=== PATIENT | male | born 1940 | race Caucasian/White ===

== ENCOUNTER 2018-03-25 06:30 | Day surgery (SDC) | payer MEDICARE, OTHER ==
[2018-03-23 15:41] VITALS: BMI 39.8
[~2018-03-25 06:30] MED LIST: LACTATED RINGERS 1,000 ML IV SCH; LIDOCAINE 1% 20 ML VIAL (10MG/ML) FOR IV START INTRADERMA PRN; MIDAZOLAM 2 MG/2 ML VIAL IV PRN
[2018-03-25 07:44] VITALS: RESP 18; TEMP 98
[2018-03-25 07:49] LABS: Glucose,Whole Blood 113 mg/dL (75-99)
[2018-03-25] MEDS ORDERED: LIDOCAINE 1% INJ 10MG/ML (20 ML MDV) ONE (08:04)
[2018-03-25] MEDS ORDERED: PROPOFOL 10 MG/ML 20 ML VIAL IV ONE (08:04)
--- NOTE | 2018-03-25 08:31 | P.PCN ---
Date of Procedure: 03/25/18 Procedure(s) Performed: BRIEF HISTORY: Patient is a 77-year-old pleasant male, scheduled for an elective colonoscopy as a part of evaluation of positive cologard stool testing. His last colonoscopy was 5 years ago and was noted to have colon polyps. PROCEDURE PERFORMED: Colonoscopy with snare polypectomy. PREOPERATIVE DIAGNOSIS: Positive cologard/history of colon polyps. IV sedation per Anesthesia. PROCEDURE: After informed consent was obtained, the patient, was brought into the endoscopy unit. IV sedation was administered by Anesthesia under continuous monitoring. Digital rectal examination was normal. Initially the Olympus CF- 160 flexible video colonoscope was then inserted in the rectum, gradually advanced into the cecum without any difficulty. Careful examination was performed as the scope was gradually being withdrawn. Ileocecal valve and the appendiceal orifice were visualized and appeared normal. Prep was excellent. In the cecum there were 2 polyps measuring 5 mm and 1 cm in size which were removed by cold biopsy and snare polypectomy respectively. Mucosa of the cecum , ascending colon, transverse colon, descending colon, appeared normal. In the sigmoid colon there was 1 m broad-based polyp removed by snare polypectomy. Rest of the sigmoid colon, and rectum appeared normal. Retroflexion was performed in the rectum and no lesions were seen. The patient tolerated the procedure well. IMPRESSION: 1 cm and 5 mm cecal polyp status post snare polypectomy and biopsy respectively 1 cm sigmoid colon polyp status post polypectomy RECOMMENDATIONS: Findings of this examination were discussed with the patient as well as his family. He was a bite follow with the biopsy results. If the biopsy shows a tubular adenoma, he can have a repeat colonoscopy in 3 to 5 years.
[2018-03-25 08:52] VITALS: PULSE 52
[2018-03-25 09:01] VITALS: BP 175/79
== END 2018-03-25 09:16 | disposition home or self-care (01) ==
LOC: ORWHC2ENDO 06:30
PROVIDERS: ATTEND Internal Medicine Gastroenterology
DX: K63.5 Polyp of colon (principal); Z86.010 Personal history of colon polyps; I10 Essential (primary) hypertension; E78.5 Hyperlipidemia, unspecified; E11.9 Type 2 diabetes mellitus without complications; Z79.84 Long term (current) use of oral hypoglycemic drugs; E66.01 Morbid (severe) obesity due to excess calories; Z68.39 Body mass index [BMI] 39.0-39.9, adult; Z79.899 Other long term (current) drug therapy; Z88.0 Allergy status to penicillin
CPT/HCPCS: 88305; 45380; 45385; J2001; J2704

== ENCOUNTER → 2019-08-31 | Outpatient (CLI) | payer MEDICARE, OTHER ==
[2019-08-31 10:44] LABS: Potassium 4.9 mmol/L (3.5-5.1)
[2019-08-31 10:59] LABS: HCT 45.9 % (39.0-53.0); HGB 15.4 gm/dL (13.0-17.5); MCH 30.3 pg (25.0-35.0); MCHC 33.5 g/dL (31.0-37.0); MCV 90.5 fL (80.0-100.0); Platelet Count 164 k/uL (150-450); RBC 5.07 m/uL (4.30-5.90); RDW 13.7 % (11.5-15.5); WBC 9.7 k/uL (3.8-10.6)
== END | disposition home or self-care (01) ==
LOC: LABPAT 09:40
PROVIDERS: ATTEND Internal Medicine Interventional Cardiology
DX: Z01.812 Encounter for preprocedural laboratory examination (principal); R94.39 Abnormal result of other cardiovascular function study
CPT/HCPCS: 36415; 80051; 82565; 84520; 85027

== ENCOUNTER 2019-09-08 06:05 | Day surgery (SDC) | payer MEDICARE, OTHER ==
[2019-09-03 15:50] VITALS: BMI 36.9
[2019-09-08] MEDS ORDERED: ALPRAZolam 0.25 MG TAB PO PRN (06:12)
[2019-09-08] MEDS ORDERED: ASPIRIN 325 MG TAB PO STA (06:12)
[2019-09-08] MEDS ORDERED: ALPRAZolam 0.5 MG TAB PO PRN (06:12)
[2019-09-08] MEDS ORDERED: ATORVASTATIN 80 MG TAB PO STA (06:12)
[2019-09-08] MEDS ORDERED: NITROGLYCERIN SL TABS 0.4 MG TAB SUBLINGUAL PRN (06:12)
[2019-09-08] MEDS ORDERED: SODIUM CHLORIDE 0.9% 1,000 ML in EMPTY BAG 1 BAG IV ONE (06:12)
[2019-09-08 07:04] LABS: Glucose,Whole Blood 112 mg/dL (75-99)
[2019-09-08 07:11] VITALS: RESP 16; TEMP 98.1
[2019-09-08] MEDS ORDERED: SODIUM CHLORIDE 0.9% 1,000 ML IV ONE (07:13)
[2019-09-08] MEDS: MIDAZOLAM 2 MG/2 ML VIAL IV ONE ×2 (07:30→07:38)
[2019-09-08] MEDS ORDERED: LIDOCAINE 1% INJ 10MG/ML (20 ML MDV) SQ ONE (07:33)
[2019-09-08] MEDS: VERAPAMIL SYRINGE (5 MG/10 ML) INTRAARTER ONE ×2 (07:35→07:50)
[2019-09-08] MEDS ORDERED: HEPARIN SODIUM 1,000 UN/ML (10ML VL) IV ONE (07:37)
[2019-09-08] MEDS ORDERED: IOPAMIDOL-370 100ML BTL INJ ONE (07:55)
[2019-09-08] MEDS ORDERED: SODIUM CHLORIDE 0.9% 1,000 ML IV SCH (08:00)
--- NOTE | 2019-09-08 09:37 | CC ---
CARDIAC CATHETERIZATION REPORT DATE OF SERVICE: 09/08/2019 PROCEDURE: Left heart catheterization and coronary angiography. PERFORMED BY: Dr. Abrahan Ribera. Moderate conscious sedation time was 20 minutes. CLINICAL INFORMATION: Mr. Hooks is a 79-year-old gentleman with history of hypertension, hyperlipidemia, and paroxysmal SVT. He recently had a positive stress test with inferior wall reversible defect. He was advised cardiac cath after due discussion regarding risks, benefits, and options. PROCEDURE NOTE: Under local anesthesia and strict aseptic precautions, a 6-[place] introducer was placed in the right radial artery. Using a JL3.5 and JR4 catheter, I performed selective coronary angiography. I used the same right catheter to check LV pressures but did not perform LV gram. The sheath was taken out and a TR band applied as per protocol. Patient was sent to the room in a stable condition. Findings were discussed with the patient and family. CARDIAC CATHETERIZATION FINDINGS: Left foot end-diastolic pressure was about 14-15 mmHg without any gradient across the aortic valve. CORONARY ANGIOGRAPHY FINDINGS: 1. RIGHT CORONARY ARTERY: Large dominant disease-free vessel distally bifurcates into a large PDA and PLV. No significant disease, only minor irregularities noted. 2. LEFT MAIN CORONARY ARTERY: Short, patent, disease-free vessel that bifurcates into LAD and circumflex. 3. LEFT ANTERIOR DESCENDING CORONARY ARTERY: Good caliber vessel, extends along the anterior wall, gives off septal and diagonal branches, runs all the way to the apex, has no significant disease, only minor irregularities noted. 4. LEFT POSTERIOR CIRCUMFLEX CORONARY ARTERY: Nondominant vessel, gives off a single obtuse marginal that runs laterally, has minor irregularities, no significant disease. 5. LEFT VENTRICULOGRAM: This was not performed. FINAL IMPRESSION: This patient has a right dominant system, normal filling pressures. No significant gradient across the aortic valve and no significant obstructive coronary artery disease. RECOMMENDATIONS: Findings were discussed with the patient and and daughter. Continued medical therapy with risk factor modification is advised. I expect the patient to be discharged tomorrow if he remains stable. MMODL / IJN: [id number] /
[2019-09-08 15:24] VITALS: PULSE 50
[2019-09-08 16:35] VITALS: BP 148/82
== END 2019-09-08 13:55 | disposition home or self-care (01) ==
LOC: CATHCVL 06:05
PROVIDERS: ATTEND Internal Medicine Interventional Cardiology
DX: R94.39 Abnormal result of other cardiovascular function study (principal); I10 Essential (primary) hypertension; E78.5 Hyperlipidemia, unspecified; E11.9 Type 2 diabetes mellitus without complications; I49.5 Sick sinus syndrome; E78.00 Pure hypercholesterolemia, unspecified; E66.9 Obesity, unspecified; Z68.30 Body mass index [BMI] 30.0-30.9, adult; Z79.84 Long term (current) use of oral hypoglycemic drugs; Z79.899 Other long term (current) drug therapy; Z88.0 Allergy status to penicillin
CPT/HCPCS: 93458; C1769; C1894; J2250; J2001; J1644; Q9967

== ENCOUNTER 2020-08-09 11:46 | Emergency (ER) | payer MEDICARE, OTHER ==
--- NOTE | 2020-08-09 12:32 | ED ---
General Adult HPI - General Chief complaint: Extremity Injury, Lower Stated complaint: leg injury Time Seen by Provider: 08/09/20 12:04 Source: patient, RN notes reviewed Mode of arrival: ambulatory Limitations: no limitations - History of Present Illness Initial comments: 80-year-old male presents to the emergency room for a chief complaint of left knee pain. Patient reports last week a picnic table tipped over and fell on his knee. States he has had a bump on the medial aspect of his knee since that time that will not go away. Patient reports that he also was recently sunburned and that's when his legs are red. Patient does admit his left leg looks a little swollen. He denies fevers or chills. Denies history of DVT.Patient has no other complaints at this time including shortness of breath, chest pain, abdominal pain, nausea or vomiting, headache, or visual changes. - Related Data Home Medications Medication Instructions Recorded Confirmed Finasteride [Proscar] 5 mg PO HS 02/20/16 09/08/19 Lovastatin [Mevacor] 20 mg PO HS 02/20/16 09/08/19 metFORMIN HCL [Glucophage] 500 mg PO HS 10/07/16 09/08/19 Losartan [Cozaar] 50 mg PO DAILY 03/23/18 09/08/19 Verapamil [Isoptin] 40 mg PO QID 09/03/19 09/08/19 Aspirin 325 mg PO ONCE 09/08/19 09/08/19 Allergies Allergy/AdvReac Type Severity Reaction Status Date / Time Penicillins Allergy Itching Verified 08/09/20 11:59 Review of Systems ROS Statement: Those systems with pertinent positive or pertinent negative responses have been documented in the HPI. ROS Other: All systems not noted in ROS Statement are negative. Past Medical History Past Medical History: Cancer, Diabetes Mellitus, Hyperlipidemia, Hypertension, Prostate Disorder Additional Past Medical History / Comment(s): Hx: Skin cancer, BPH. hx colon polyps, sinus problems History of Any Multi-Drug Resistant Organisms: None Reported Past Surgical History: Adenoidectomy, Hernia Repair, Prostate Surgery, Tonsillectomy Additional Past Surgical History / Comment(s): Prostate surgery x 3. Hemorrhoidectomy. Carpal tunnel-juan, trigger finger-left thumb. Juan cataracts Past Anesthesia/Blood Transfusion Reactions: No Reported Reaction Past Psychological History: No Psychological Hx Reported Past Alcohol Use History: Rare Past Drug Use History: None Reported - Past Family History Father Family Medical History: Cancer General Exam Limitations: no limitations General appearance: alert, in no apparent distress Head exam: Present: atraumatic, normocephalic, normal inspection Eye exam: Present: normal appearance ENT exam: Present: normal exam, mucous membranes moist Neck exam: Present: normal inspection, full ROM. Absent: tenderness, meningismus, lymphadenopathy Respiratory exam: Present: normal lung sounds bilaterally. Absent: respiratory distress, wheezes, rales, rhonchi, stridor Cardiovascular Exam: Present: regular rate, normal rhythm, normal heart sounds. Absent: systolic murmur, diastolic murmur, rubs, gallop, clicks GI/Abdominal exam: Present: soft, normal bowel sounds. Absent: distended, tenderness, guarding, rebound, rigid Extremities exam: Present: full ROM (Full range of motion of the left lower extremity.), tenderness (Tenderness to hematoma on the medial aspect of the left knee. No tenderness elsewhere in the knee joint. No tenderness to the calf.), normal capillary refill (Capillary refill less than 2 seconds, DP pulse 2+ left lower extremity.). Absent: pedal edema, joint swelling, calf tenderness (No calf tenderness, there is a minimal amount of edema noted of the left calf.) Course Vital Signs 08/09/20 11:56 Temperature 97.7 F Pulse Rate 88 Respiratory 18 Rate Blood Pressure 149/82 O2 Sat by Pulse 98 Oximetry Medical Decision Making - Medical Decision Making Vitals are stable. Physical exam shows neurovascular status intact in the left lower extremity. No evidence of cellulitis or infectious process at this time. X-ray of the left knee shows no acute fracture or dislocation. Ultrasound shows no evidence for DVT. At this time patient can be discharged home to follow up with primary care. He is to return here if he has any worsening sy mptoms. Disposition Clinical Impression: Knee pain, Contusion, Posterior dislocation of hip Disposition: HOME SELF-CARE Condition: Good Instructions (If sedation given, give patient instructions): Knee Pain (ED) Additional Instructions: Please take Motrin and Tylenol for pain. Please follow-up with your primary care doctor in one to 2 days. Return to the emergency room for any worsening symptoms. Is patient prescribed a controlled substance at d/c from ED?: No Referrals: Pietro Kilgore [Primary Care Provider] - 1-2 days Time of Disposition: 14:13
--- NOTE | 2020-08-09 12:55 | XR ---
EXAMINATION TYPE: XR knee complete LT DATE OF EXAM: 08/09/2020 CLINICAL HISTORY: pain TECHNIQUE: Three views of the left knee are obtained. COMPARISON: None. FINDINGS: There is no acute fracture/dislocation. The tri-compartment joint spaces appear mildly na rrowed. The overlying soft tissue appears unremarkable. IMPRESSION: There is no acute fracture or dislocation ICD 10 NO FRACTURE, INITIAL EVALUATION
--- NOTE | 2020-08-09 13:42 | US ---
EXAMINATION TYPE: US venous doppler duplex LE LT DATE OF EXAM: 08/09/2020 1:32 PM COMPARISON: NONE CLINICAL HISTORY: pain. Table fell on patients leg. SIDE PERFORMED: Left TECHNIQUE: The lower extremity deep venous system is examined utilizing real time linear array sonog jamal with graded compression, doppler sonography and color-flow sonography. VESSELS IMAGED: External Iliac Vein (EIV) Common Femoral Vein Deep Femoral Vein Greater Saphenous Vein * Femoral Vein Popliteal Vein Small Saphenous Vein * Left Leg: Negative for DVT IMPRESSION: No evidence for DVT at this time.
[2020-08-09 14:27] VITALS: BP 142/70; PULSE 78; RESP 17; TEMP 98
== END 2020-08-09 14:26 | disposition home or self-care (01) ==
LOC: EC 11:46
DX: S80.01XA Contusion of right knee, initial encounter (principal); S73.01 Posterior subluxation and dislocation of hip; E11.9 Type 2 diabetes mellitus without complications; E78.5 Hyperlipidemia, unspecified; I10 Essential (primary) hypertension; N40.0 Benign prostatic hyperplasia without lower urinary tract symptoms; Z85.828 Personal history of other malignant neoplasm of skin; Z79.84 Long term (current) use of oral hypoglycemic drugs; Z79.890 Hormone replacement therapy; Z79.82 Long term (current) use of aspirin; Z79.899 Other long term (current) drug therapy; Z88.0 Allergy status to penicillin; Z98.890 Other specified postprocedural states; W20.8XXA Other cause of strike by thrown, projected or falling object, initial encounter
CPT/HCPCS: 99284

== ENCOUNTER → 2021-03-19 | Outpatient (CLI) | payer MEDICARE, OTHER | END | disposition home or self-care (01) | LOC: LABPAT 09:03 | PROVIDERS: ATTEND Orthopaedic Surgery | DX: Z01.812 Encounter for preprocedural laboratory examination (principal); M16.12 Unilateral primary osteoarthritis, left hip | CPT/HCPCS: 87070 ==

== ENCOUNTER → 2021-03-19 | Outpatient (CLI) | payer MEDICARE, OTHER ==
[2021-03-19 17:30] LABS: HCT 49.6 % (39.6-50.0); HGB 16.5 g/dL (13.0-17.0); MCH 30.2 pg (27.0-32.0); MCHC 33.3 g/dL (32.0-37.0); MCV 90.8 fL (80.0-97.0); Mean Platelet Volume 11.8 fL (9.5-12.2); Platelet Count 177 X 10*3/uL (140-440); RBC 5.46 X 10*6/uL (4.40-5.60); RDW 13.6 % (11.5-14.5); WBC 9.67 X 10*3/uL (4.50-10.00)
[2021-03-19 19:13] LABS: African American GFR (CKD) 73.1 (60.0-200.0); Anion Gap 7.5 mmol/L (4.00-12.00); Calcium 8.8 mg/dL (8.7-10.3); Carbon Dioxide 24.5 mmol/L (21.6-31.8); Non-African American GFR(CKD) 63.1 (60.0-200.0); Potassium 4.4 mmol/L (3.5-5.5)
== END | disposition home or self-care (01) ==
LOC: LABWHC1 09:06
PROVIDERS: ATTEND Internal Medicine Interventional Cardiology
DX: I48.91 Unspecified atrial fibrillation (principal)
CPT/HCPCS: 36415; 80048; 85027

== ENCOUNTER → 2021-03-22 | Outpatient (CLI) | payer MEDICARE, OTHER | END | disposition home or self-care (01) | LOC: LABPAT 14:16 | PROVIDERS: ATTEND Orthopaedic Surgery | DX: Z01.812 Encounter for preprocedural laboratory examination (principal); M16.12 Unilateral primary osteoarthritis, left hip | CPT/HCPCS: 36415; 85610 ==

== ENCOUNTER 2021-03-27 10:50 | Day surgery (SDC) | payer MEDICARE, OTHER ==
[2021-03-22 11:35] VITALS: BMI 37.7
--- NOTE | 2021-03-26 09:16 | HP ---
HISTORY AND PHYSICAL CHIEF COMPLAINT: Left hip pain. HISTORY OF PRESENT ILLNESS: The patient is an 80-year-old retired gentleman who presents with progressive left hip pain for the past several years. He notes spine and groin pain that is worse with walking. This severely limits him. He is unable to go very far because of pain. He is also having night symptoms. He has been taking anti-inflammatories with only partial temporary relief. PAST MEDICAL HISTORY: Significant for type 2 diabetes, hypercholesterolemia, hypertension, prostatic hypertrophy, and arthritis. PAST SURGICAL HISTORY: Significant for carpal tunnel release, cataract removal, prostate surgery and hernia repair. CURRENT MEDICATIONS: 1. Finasteride. 2. Losartan. 3. Lovastatin. 4. Metformin. 5. Verapamil. 6. Tramadol. 7. Diclofenac. ALLERGIES: He has allergies to PENICILLIN. FAMILY HISTORY: Noncontributory. SOCIAL HISTORY: Significant for social alcohol use. REVIEW OF SYSTEMS: Sixteen-point review of systems otherwise reviewed and is noncontributory. PHYSICAL EXAMINATION: On examination, the patient is approximately 5 feet 8 inches, 247 pounds of endomorphic habitus. HEENT exam is nonfocal. Neck is supple. Passive motion left hip, flexion 80 degrees, external rotation with hip flexed 50 degrees, internal rotation 0 degrees with pain. Clinically, he does have shortening of the left lower extremity compared to the right. His distal neurovascular exam appears to be intact. However, he does have venous stasis changes bilaterally. AP of the pelvis obtained in the office show severe left hip osteoarthrosis with bone- on-bone changes and subchondral sclerosis. IMPRESSION: 1. Left hip severe osteoarthrosis-symptomatic. 2. Non-insulin dependent diabetes. 3. Venous stasis. RECOMMENDATIONS: I talked to the patient at length regarding his condition and treatment options. At this point, he is quite limited because of pain related to his osteoarthrosis despite conservative measures. After thorough discussion, he opts to proceed with surgery. We will plan to pursue left total hip arthroplasty utilizing a direct lateral approach. We will anticipate beginning DVT prophylaxis postoperatively. Risks and benefits were discussed at length in layman's terms. MMODL / IJN: [id number] /
[~2021-03-27 10:50] MED LIST changes: +ACETAMINOPHEN TAB 500 MG TAB PO PRN; -LACTATED RINGERS 1,000 ML IV SCH; -LIDOCAINE 1% 20 ML VIAL (10MG/ML) FOR IV START INTRADERMA PRN; +MELOXICAM 7.5 MG TAB PO PRN; -MIDAZOLAM 2 MG/2 ML VIAL IV PRN; +TRANEXAMIC ACID 1,000 MG in SODIUM CHLORIDE 0.9% 100 ML IVPB PRN
[2021-03-27] MEDS ORDERED: LACTATED RINGERS 1,000 ML IV ONE ×2 (11:36→15:11)
[2021-03-27 11:38] LABS: Glucose,Whole Blood 110 mg/dL (75-99)
[2021-03-27] MEDS ORDERED: ONDANSETRON 4 MG/2 ML VIAL ONE (11:39)
[2021-03-27] MEDS ORDERED: DEXAMETHASONE SOD PHOSPHATE 4 MG/ML 1 ML VIAL IV ONE (11:47)
[2021-03-27] MEDS ORDERED: MIDAZOLAM 2 MG/2 ML VIAL ONE (13:16)
[2021-03-27] MEDS ORDERED: SODIUM CHLORIDE 0.9% 100 ML BAG ONE (13:16)
[2021-03-27] MEDS ORDERED: PROPOFOL 10 MG/ML 20 ML VIAL IV ONE (13:16)
[2021-03-27] MEDS ORDERED: fentaNYL (PF) 50 MCG/ML 2 ML AMP ONE (13:16)
[2021-03-27] MEDS ORDERED: PHENYLEPHRINE-0.9% NACL SYG 1,000 MCG/10 ML SYRINGE ONE (13:16)
[2021-03-27] MEDS ORDERED: TRANEXAMIC ACID 1,000 MG/10 ML VIAL ONE (13:16)
[2021-03-27] MEDS ORDERED: ePHEDrine SULFATE/0.9% NACL/PF 50 MG/5 ML SYRINGE IV ONE (13:16)
[2021-03-27] MEDS ORDERED: HYDROmorphone 0.2 MG/1 ML SYRINGE IVP PRN (15:10)
[2021-03-27] MEDS ORDERED: NALOXONE 0.4 MG/ML 1 ML VIAL IV PRN (15:10)
--- NOTE | 2021-03-27 15:40 | P.OP ---
Date of Procedure: 03/27/21 Preoperative Diagnosis: Severe left hip osteoarthrosis Postoperative Diagnosis: Same Procedure(s) Performed: Left total hip arthroplastypress-fit- lateral approach Implants: Depuy Corail size 13 press-fit collared standard femoral stem, 36+5 cobalt chrome femoral head, 56 mm Velma acetabular shell with neutral polyethylene liner. Anesthesia: spinal Surgeon: Carlos Chung Plate Drying Machine Tender #1: Rusty Terry Estimated Blood Loss (ml): 200 Pathology: other (Femoral head) Condition: stable Disposition: PACU Indications for Procedure: The patient's to 80-year-old male who presents with progressive left hip pain secondary to osteoarthrosis despite conservative treatment. A discussion of the risks and benefits of operative intervention versus continued conservative measures was made with patient. He opted to pursue surgery. Operative risks to include infection, neurovascular injury, development of blood clots, possible leg length discrepancy, possible fracture, possible instability need for subsequent procedures was discussed. Informed consent was obtained. Operative Findings: As below Description of Procedure: The patient was brought to the operating room, and after induction of spinal anesthesia was placed in a lateral decubitus position. The bony prominences were appropriately padded. The pelvis was stable perpendicular to the floor with a pegboard. The left lower extremity was prepped and draped in normal fashion. A 12 cm incision was then made centered over the greater trochanter extending superiorly to level the ASIS and distally in line with the femoral shaft. The skin and subcutaneous tissues were divided sharply. Electrocautery was used for hemostasis. The fascia marielena and gluteus johnny fascia was split in line with the skin incision. The muscle fibers were bluntly dissected proximally. A self-retaining retractor was placed. The anterior and posterior margins of the gluteus medius muscles identified and the anterior two thirds was detached from the greater trochanter with electrocautery. The gluteus minimus tendon was identified and detached in a similar fashion. A wide capsulotomy was performed. The femoral neck fracture was identified in the lower neck cut was made approximately 1 1/2 cm above the level of the lesser trochanter with a sagittal saw at a 45 the shaft. The head was then extracted with a corkscrew. Attention was then paid towards preparing the acetabular. Anterior and posterior retractors were placed. The remaining capsular labral tissues debrided sharply clearly defining the acetabular margins. Began reaming with a 49 mm reamer taking care to initially medialize, then reaming at 45 of abduction and 20 of anteversion. Sequential reaming is performed up to 55 mm. This was down to bleeding bony surface. A trial 56 mm acetabular shell was inserted at 45 of abduction and 20 of anteversion. This was fully seated. There was good rim fit and stability. A neutral polyethylene liner was then impacted. Care taken to avoid any soft tissue interposition. Attention was then paid towards preparing the proximal femur. A box chisel was used to open the metaphyseal region. A canal finder was used to find the femoral canal. Sequential broaching was performed up to a size 13. This is placed in 15 of anteversion with the leg perpendicular floor judging off the trans-epicondylar axis. There is good rotational stability. A calcar mill was used to fashion the medial calcar. A trial standard neck along with a 36 mm + 5 trial head was placed. The hip was gently reduced. It was taken through range of motion. I felt to be stable in flexion and extension with internal and external rotation. I felt there was adequate temple of soft tissue tension. The hip was gently dislocated. The trial components removed. Pulsatile lavage was utilized. The final size 13 standard collared femoral stem was inserted again with the leg perpendicular to the floor in 15 of anteversion. Again there was good rotational stability. A 36 mm + 5 cobalt chrome femoral head was gently impacted. The hip was gently reduced. Again it was taken through motion and felt to be stable in flexion and extension with internal and external rotation. Pulsatile lavage was again utilized. With the leg in abduction the gluteus minimus and medius tendons reattached to the greater trochanter with #2 Ethibond suture. There was minimal drainage therefore a deep drain was not placed. The fascia marielena and gluteus johnny fascia was closed with #2 Ethibond suture. The subcutaneous tissues were reapproximated interrupted 2-0 Vicryl sutures. The skin was reapproximated with 3-0 subcuticular strata fix suture. Skin tape and adhesive was applied. A sterile dressing was applied. The patient was awoken from sedation and transferred to recovery room in good condition. Blood loss was estimated 200 mL. No complications were incurred. Sponge and needle counts were correct in the case. Rusty DEL CID assisted during the major composes case to include exposure, implantation, and closure.
[2021-03-27] MEDS ORDERED: ARTIFICIAL TEARS-HYPROMELLOSE DROPS 15 ML BTL BOTH EYES PRN (15:51)
--- NOTE | 2021-03-27 16:03 | XR ---
EXAMINATION TYPE: XR Hip Limited LT DATE OF EXAM: 03/27/2021 COMPARISON: None HISTORY: Postop left hip replacement TECHNIQUE: AP left hip FINDINGS: Femoral component and acetabular component have been placed. No acute fractures are evident . Postsurgical soft tissue changes are present. IMPRESSION: 1. No fracture post left hip replacement
[2021-03-27] MEDS ORDERED: HYDROmorphone 0.5 MG/0.5 ML SYRINGE IVP ONE ×2 (17:00→17:30)
[2021-03-27 20:08] LABS: Glucose,Whole Blood 131 mg/dL (75-99)
[2021-03-27] MEDS: HYDROcodone/APAP 7.5-325MG 1 EACH TAB PO PRN (22:41)
--- NOTE | 2021-03-27 23:29 | P.CONS ---
History of Present Illness - Reason for Consult Consult date: 03/27/21 - History of Present Illness The patient is an 80-year-old male with a PMH of A. fib on throughout though, hypertension, type II DM, and BPH who was admitted for scheduled left total hip arthroplasty. The patient underwent the procedure earlier today and was seen postoperatively on the surgical unit. He reported continued pain at the left hip, 3-4 in intensity. Reported that he has not been up and out of bed since hi s surgery. Denied passing flatness. Reports no weakness, numbness, or tingling. Denied chest pain, shortness of breath, fever, chills, sore throat, cough, nausea, vomiting, abdominal pain. Reports compliance with his medications at home. Review of Systems Pertinent positives and negatives as discussed in HPI, a complete review of systems was performed and all other systems are negative. Past Medical History Past Medical History: Cancer, Diabetes Mellitus, Hyperlipidemia, Hypertension, Prostate Disorder Additional Past Medical History / Comment(s): Hx: Skin cancer, BPH. hx colon polyps, sinus problems History of Any Multi-Drug Resistant Organisms: None Reported Past Surgical History: Adenoidectomy, Hernia Repair, Prostate Surgery, Tonsillectomy Additional Past Surgical History / Comment(s): Prostate surgery x 3. He morrhoidectomy. Carpal tunnel-juan, trigger finger-left thumb. Juan cataracts Past Anesthesia/Blood Transfusion Reactions: No Reported Reaction Past Psychological History: No Psychological Hx Reported Smoking Status: Never smoker Past Alcohol Use History: Rare Past Drug Use History: None Reported - Past Family History Father Family Medical History: Cancer Medications and Allergies Home Medications Medication Instructions Recorded Confirmed Type Finasteride [Proscar] 5 mg PO HS 02/20/16 03/27/21 History metFORMIN HCL [Glucophage] 500 mg PO HS 10/07/16 03/27/21 History Losartan [Cozaar] 50 mg PO QAM 03/23/18 03/22/21 History Latanoprost Ophth [Xalatan 0.005%] 1 drop BOTH EYES HS 03/22/21 03/27/21 History Metoprolol Tartrate [Lopressor] 25 mg PO BID 03/22/21 03/22/21 History Rivaroxaban [Xarelto] 20 mg PO DAILY 03/22/21 03/27/21 History Verapamil HCl [Verapamil ER] 120 mg PO QAM 03/22/21 03/22/21 History Allergies Allergy/AdvReac Type Severity Reaction Status Date / Time Penicillins Allergy Itching Verified 03/22/21 11:28 Physical Exam Vitals: Vital Signs Temp Pulse Pulse Resp BP Pulse Ox 03/27/21 19:20 97.4 F L 74 16 145/70 94 L 03/27/21 17:45 63 16 138/55 98 03/27/21 16:45 73 16 144/67 94 L 03/27/21 16:15 64 16 130/57 96 03/27/21 16:00 59 L 16 131/52 93 L 03/27/21 15:46 69 16 106/55 97 03/27/21 15:31 96.8 F L 78 18 110/70 98 Intake and Output 03/27/21 03/27/21 03/27/21 06:59 14:59 22:59 Intake Total 1050 550 Output Total 50 0 Balance 1000 550 Intake: IV 1050 550 Output: Urine 0 Estimated Blood Loss 50 Other: Weight 112.4 kg 112.4 kg General: non toxic, no distress, appears at stated age, morbidly obese Derm: no unusual rashes/lesions no unusual ecchymoses, warm, dry, left hip lateral dressing clean and dry Head: atraumatic, normocephalic, symmetric Eyes: EOMI, no lid lag, anicteric sclera, pupils equal round reactive to light ENT: Nose and ears atraumatic, no thrush, no pharyngeal erythema Neck: No thyromegaly, no cervical lymphadenopathy, trachea midline, supple Mouth: no lip lesion, mucus membranes moist Cardiovascular: S1S2 reg, no murmur, positive posterior tibial pulse bilateral, no edema, capillary refill less than 2 seconds Lungs: CTA bilateral, no rhonchi, no rales , no accessory muscle use Abdominal: soft, nontender to palpation, no guarding, no appreciable organomegaly, normal bowel sounds Ext: no gross muscle atrophy, muscle strength 5 out of 5 in all extremities grossly except left lower extremity postoperatively, no contractures, Neuro: CN II-XI grossly intact, light touch intact all 4 extremities, finger to nose within normal limits, Psych: Alert, oriented, appropriate affect Results Labs: Abnormal Lab Results - Last 24 Hours (Table) 03/27/21 03/27/21 Range/Units 11:26 20:06 POC Glucose (mg/dL) 110 H 131 H (75-99) mg/dL Assessment and Plan Plan: Status post left total hip replacement -Defer management including pain control with orthopedic surgery service Chronic conditions: Hypertension, type II DM, A. fib -Defer anticoagulation to an orthopedic surgery service as the patient was ordered to resume Xarelto to in a.m. -Lispro insulin sliding scale with blood glucose monitoring -Continue with home Lopressor and losartan doses -Continue with home verapamil We appreciate this opportunity to be involved in this patient's care. We will follow the patient with you. For any further questions, please not hesitate to contact the [facility] inpatient team.
[2021-03-28] MEDS: HYDROcodone/APAP 7.5-325MG 1 EACH TAB PO PRN ×2 (05:12→12:17)
[2021-03-28 06:54] LABS: Glucose,Whole Blood 137 mg/dL (75-99)
[2021-03-28 07:14] LABS: Basophils % (A) 0 %; Eosinophils % (A) 0 %; HCT 41.8 % (39.0-53.0); HGB 14.1 gm/dL (13.0-17.5); Lymphocytes # (A) 1.4 k/uL (1.0-4.8); Lymphocytes % (A) 9 %; MCHC 33.9 g/dL (31.0-37.0); MCV 91.4 fL (80.0-100.0); Mean Platelet Volume 8.6; Monocytes % (A) 7 %; Neutrophils # (A) 12.6 k/uL (1.3-7.7); Neutrophils % (A) 83 %; Platelet Count 160 k/uL (150-450); RBC 4.57 m/uL (4.30-5.90); RDW 13.6 % (11.5-15.5); WBC 15.2 k/uL (3.8-10.6)
[2021-03-28 08:03] VITALS: BP 174/72; PULSE 66; RESP 18; TEMP 98.1
[2021-03-28] MEDS ORDERED: VERAPAMIL SR 120 MG TABLET.ER PO SCH (09:00)
[2021-03-28] MEDS ORDERED: METOPROLOL TARTRATE 25 MG TAB PO SCH (09:00)
[2021-03-28] MEDS ORDERED: LOSARTAN 50 MG TAB PO SCH (09:00)
[2021-03-28] MEDS ORDERED: RIVAROXABAN 10 MG TAB PO SCH (09:00)
--- NOTE | 2021-03-28 11:46 | P.DS ---
Providers Date of admission: 03/27/2021 Expected date of discharge: 03/28/21 Attending physician: Carlos Chung Consults: 03/27/21 15:16 Consult Physician Routine Consulting Provider: Candido Cho Consult Reason/Comments: Medical Management; s/p left total hip arthroplasty Do you want consulting provider notified?: Yes Primary care physician: Cherelle Gonzalez MD Hospital Course: Date of admission: 03/27/2021 Date of discharge: 03/28/2021 Admission diagnosis: Left hip osteoarthritis Discharge diagnosis: Same Attending physician: Dr. Chung Surgical procedures: Left total hip arthroplasty Brief history: Patient is a 80-year-old male with a history of progressive primary left hip osteoarthritis. At this point patient has failed conservative treatment measures and has opted to proceed with a elective left total hip arthroplasty. Hospital course: Details of patient's surgery can be found in operative report. Patient tolerated the procedure well and was subsequently transported to orthopedic floor. Patient's orthopdodc and medical care was provided daily. Patient had daily laboratory tests performed for evaluation of overall blood counts . Patient had daily physical therapy to include strengthening range of motion as well as education with walker ambulation. Patient was treated with Xarelto for their postoperative DVT prophylaxis during their inpatient stay. Patient was noted to have a relatively uneventful postoperative course. Patient reported satisfactory pain control with oral pain medications by postoperative day 1. Patient showed satisfactory progress with physical therapy. Patient moved steadily through the program and had no difficulty meeting the goals by postoperative day 1. Given patient's otherwise satisfactory course and having met physical therapy goals, plan is to discharge patient home on postoperative day 1. Discharge condition/disposition: Patient will be discharged home in stable condition. Discharge medications: Instructions are given on resumption of patient's normal daily medications per primary care recommendation, in addition patient will be prescribed [place] 7.5 mg/325 mg. resume regular Xarelto once home Discharge instructions: 1. Wound care and infection precautions, keep incision dry and covered while showering, no lotions, creams, moisturizers. No soaking, tubs, pools, hottubs. Do not scrub over the incision. 2. Weight-bear as tolerated with walker / cane until follow-up. 3. Ice and elevate when necessary. Do not exceed 20 minutes per hour with ice pack. 4. Utilize compression sleeve until seen at first follow up appointment. 5. Visiting nursing care. 6. Home physical therapy. 7. Pain meds and anticoagulants per prescription. 8. Pain medication has potential to cause constipation. Increase oral fluid and fiber intake. Contact primary care provider if you have not had a bowel movement within 48 hours after discharge 9. No anti-inflammatory medication until discussed at first post operative visit, this including Motrin, Aleve, Mobic, Diclofenac. 10. Follow up in office at 2 weeks postop with Nabil Craft PA-C / Rusty Terry PA-C 11. Follow up with your primary care doctor 7-10 days after discharge. 12. Contact [facility] with any questions, . Assessment: Left hip osteoarthritis Procedures: Left total hip arthroplasty Patient Condition at Discharge: Good Plan - Discharge Summary Discharge Rx Participant: No New Discharge Prescriptions: New HYDROcodone/APAP 7.5-325MG [[place] 7.5] 1 each PO Q6HR PRN #28 tab PRN Reason: Pain No Action Finasteride [Proscar] 5 mg PO HS metFORMIN HCL [Glucophage] 500 mg PO HS Losartan [Cozaar] 50 mg PO QAM Rivaroxaban [Xarelto] 20 mg PO DAILY Metoprolol Tartrate [Lopressor] 25 mg PO BID Verapamil HCl [Verapamil ER] 120 mg PO QAM Latanoprost Ophth [Xalatan 0.005%] 1 drop BOTH EYES HS Discharge Medication List Finasteride [Proscar] 5 mg PO HS 02/20/16 [History] metFORMIN HCL [Glucophage] 500 mg PO HS 10/07/16 [History] Losartan [Cozaar] 50 mg PO QAM 03/23/18 [History] Latanoprost Ophth [Xalatan 0.005%] 1 drop BOTH EYES HS 03/22/21 [History] Metoprolol Tartrate [Lopressor] 25 mg PO BID 03/22/21 [History] Rivaroxaban [Xarelto] 20 mg PO DAILY 03/22/21 [History] Verapamil HCl [Verapamil ER] 120 mg PO QAM 03/22/21 [History] HYDROcodone/APAP 7.5-325MG [[place] 7.5] 1 each PO Q6HR PRN #28 tab 03/28/21 [Rx] Follow up Appointment(s)/Referral(s): [facility], [NON-STAFF] - ([facility] will call you to set up your first visit. A nurse will come once a week to check on you. The physical therapist will visit 3 days each week for about an hour. ) Carlos Chung MD [STAFF PHYSICIAN] - 04/11/21 1:50 pm Donovan Craft PAC [PHYSICIAN MANUAL QA TESTER] - 2 Weeks Patient Instructions/Handouts: Total Hip Replacement (GEN) Activity/Diet/Wound Care/Special Instructions: Orthopedic Discharge Instructions: 1. Wound care and infection precautions, keep incision dry and covered while showering, no lotions, creams, moisturizers. No soaking, pools, hot tubs. Do not scrub over incision. 2. Weight-bear as tolerated with walker / cane until follow-up. 3. Ice and elevate when necessary. Do not exceed 20 minutes per hour with ice pack. 4. Utilize compression sleeve until seen at first follow up appointment. 5. Pain meds and anticoagulants per prescription. 6. Pain medication has potential to cause constipation. Increase oral fluid and fiber intake. Contact primary care provider if you have not had a bowel movement within 48 hours after discharge. 7. No anti-inflammatory medication until discussed at first post operative visit, this including Motrin, Aleve, Mobic, Diclofenac. 8. Follow up in office at 2 weeks postop with Nabil Craft PA-C / Rusty Terry PA-C 9. Follow up with your primary care doctor 7-10 days after discharge. 10. Contact [facility] with any questions, . Discharge Disposition: HOME WITH HOME HEALTH SERVICES
--- NOTE | 2021-03-28 11:54 | P.PN ---
Subjective Progress Note Date: 03/28/21 Principal diagnosis: Left hip osteoarthritis Upon entering room this morning, patient was sitting comfortably in chair with legs elevated. He says he has been icing it on off. Patient says he is up with physical therapy this morning and had gone up-and-down stairs and about well. He says he is ready to go home today. He does live at home with his and has a walker already at home. Patient does say there is some pain along the left leg, but he can handle it. Patient says he has had something to eat and was passed gas as well. He denies any shortness of breath, chest pain, fever, nausea, vomiting, vision changes. Objective - Vital Signs Vital signs: Vital Signs Temp 98.1 F 03/28/21 08:00 Pulse 66 03/28/21 08:00 Resp 18 03/28/21 08:00 BP 174/72 03/28/21 08:00 Pulse Ox 95 03/28/21 08:00 Intake & Output 03/27/21 03/28/21 03/28/21 18:59 06:59 18:59 Intake Total 1600 Output Total 50 Balance 1550 Weight 112.4 kg Intake: IV 1600 Output: Urine 0 Estimated Blood Loss 50 Other: Voiding Method Urinal # Voids 2 - Exam : Incision is clean, dry, and intact. The exofin fusion tape is in good condition. There is minimal soft tissue swelling and ecchymosis surrounding the medial and lateral aspects of the incision. Calf is soft, no tenderness with palpation. Plantar flexion, dorsiflexion, EHL, FHL are intact. Sensory exam to light touch throughout the extremity is intact, dorsal pedis pulses 2+. - Labs CBC & Chem 7: 03/28/21 05:29 Labs: Abnormal Lab Results - Last 24 Hours (Table) 03/27/21 03/28/21 03/28/21 Range/Units 20:06 05:29 06:52 WBC 15.2 H (3.8-10.6) k/uL Neutrophils # 12.6 H (1.3-7.7) k/uL POC Glucose (mg/dL) 131 H 137 H (75-99) mg/dL Assessment and Plan Assessment: Left hip osteoarthritis Plan: 1. Left hip osteoarthritis - left total hip arthroplasty performed yesterday, 03/27/2021. Patient stable at this time. Patient planning on going home today 2. Pain management - stable at this time. Continue [place] 7.5 mg/325 mg while in hospital. Going home with [place] 7.5 mg/325 mg 3. GI prophylaxis/DVT prophylaxis - take stool softeners as needed. Continue Xarelto all in hospital. Resume at home Xarelto once discharged 4. PT/OT - weightbearing as tolerated with walker for assistance. Patient going home with health services 5. Encourage incentive spirometer use 6. Discharge planning - plan discharge today, 03/28/2021 Time with Patient: Less than 30
[2021-03-28 12:02] LABS: Glucose,Whole Blood 136 mg/dL (75-99)
[2021-03-28] MEDS ORDERED: FINASTERIDE 5 MG TAB PO SCH (21:00)
[2021-03-28] MEDS ORDERED: LATANOPROST 0.005% OPHTH DROPS 2.5 ML BTL BOTH EYES SCH (21:00)
[2021-03-29 01:38] LABS: Hemoglobin A1C 5.8 % (4.0-6.0)
== END 2021-03-28 13:27 | disposition home health service (06) ==
LOC: OR 10:50 → 4SSUR 15:27 → OR 03-28 13:27
PROVIDERS: ATTEND Orthopaedic Surgery
DX: M16.12 Unilateral primary osteoarthritis, left hip (principal); I10 Essential (primary) hypertension; E11.9 Type 2 diabetes mellitus without complications; E78.5 Hyperlipidemia, unspecified; N40.0 Benign prostatic hyperplasia without lower urinary tract symptoms; E78.00 Pure hypercholesterolemia, unspecified; M19.90 Unspecified osteoarthritis, unspecified site; Z79.01 Long term (current) use of anticoagulants; Z79.84 Long term (current) use of oral hypoglycemic drugs; Z79.899 Other long term (current) drug therapy; Z80.9 Family history of malignant neoplasm, unspecified; Z85.828 Personal history of other malignant neoplasm of skin; Z88.0 Allergy status to penicillin
CPT/HCPCS: 97110; 97161; 97535; 97165; 85025; 88300; 83036; 73501; 27130; C1776; J2250; J1100; J0690 ×2; J2405; J3010; J2370; J2704; J1170; 86850; 86900; 86901

== ENCOUNTER → 2021-04-19 | Outpatient (CLI) | payer MEDICARE, OTHER ==
--- NOTE | 2021-04-20 07:55 | CT ---
EXAMINATION TYPE: CT urogram wo/w con DATE OF EXAM: 04/19/2021 COMPARISON: 04/20/2013 HISTORY: Gross hematuria CT DLP: 4499 mGycm Automated exposure control for dose reduction was used. Contrast: None Technique: Axial images 5 mm thick sections. Reconstructed images in coronal plane. Postcontrast and delayed imaging is performed. Three-D reconstructed images performed in technologist on a separate co mputer R reviewed. FINDINGS: Limited CT sections are obtained through lung bases which are clear. CT ABDOMEN: Liver and spleen are of normal density without discrete masses or cysts. The pancreas is normal. Gallbladder is normal. Vascular calcifications within the aorta. The inferior vena cava is no rmal. Adrenal glands are normal. Kidneys appear without masses or hydronephrosis. There is symmetrical excretion of contrast. Extendin g from the anterior margin left mid kidney is a hypodense area measuring 2.2 cm in -3 Hounsfield unit s compatible with a small cyst. No hydroureter is evident. Urinary bladder is incompletely distended but appears unremarkable. There is some mild inflammatory change adjacent to the urinary bladder. Con subscription crew leader cystitis. Prostate is prominent. Loops of bowel visualized without contrast are normal. The appendix is normal. No suspicious dilated tubular structure or inflammatory change. IMPRESSION: 1. SOME MILD INFLAMMATORY CHANGE MAY BE ADJACENT TO THE URINARY BLADDER BEST VISUALIZED IN THE PIMENTEL L PLANE. FINDINGS NONSPECIFIC. CONSIDER CYSTITIS. 2. NO SUSPICIOUS ABNORMALITY TO ACCOUNT FOR GROSS HEMATURIA 3. SMALL CORTICAL RENAL CYSTS LEFT KIDNEY. 4. PROSTATE HYPERTROPHY.
== END | disposition home or self-care (01) ==
LOC: RADCTMAIN 07:30
PROVIDERS: ATTEND Urology
DX: R31.0 Gross hematuria (principal); N40.0 Benign prostatic hyperplasia without lower urinary tract symptoms; N28.1 Cyst of kidney, acquired
CPT/HCPCS: 82565; 84520; 74178; 36415; 74400; Q9967

== ENCOUNTER 2021-05-06 16:05 | Inpatient (IN) | payer MEDICARE, OTHER ==
[2021-05-06] MEDS ORDERED: SODIUM CHLORIDE 0.9% 1,000 ML IV STA (16:23)
[2021-05-06] MEDS ORDERED: ONDANSETRON 4 MG/2 ML VIAL IVP STA (16:38)
[2021-05-06] MEDS ORDERED: MORPHINE SULFATE 4 MG/ML SYRINGE IVP STA (16:38)
[2021-05-06 16:52] LABS: Basophils # (A) 0.1 k/uL (0-0.2); Basophils % (A) 0 %; Eosinophils # (A) 0.2 k/uL (0-0.7); Eosinophils % (A) 1 %; HCT 43.6 % (39.0-53.0); HGB 14.6 gm/dL (13.0-17.5); Lymphocytes # (A) 2.9 k/uL (1.0-4.8); Lymphocytes % (A) 16 %; MCH 29.2 pg (25.0-35.0); MCHC 33.4 g/dL (31.0-37.0); MCV 87.6 fL (80.0-100.0); Mean Platelet Volume 7.9; Monocytes # (A) 1.1 k/uL (0-1.0); Monocytes % (A) 6 %; Neutrophils # (A) 13.7 k/uL (1.3-7.7); Neutrophils % (A) 76 %; Platelet Count 249 k/uL (150-450); RBC 4.98 m/uL (4.30-5.90); RDW 14.1 % (11.5-15.5); WBC 18.1 k/uL (3.8-10.6)
[2021-05-06 17:03] LABS: Albumin 4.5 g/dL (3.5-5.0); Calcium 9.4 mg/dL (8.4-10.2); Potassium 4.6 mmol/L (3.5-5.1); Total Bilirubin 0.6 mg/dL (0.2-1.3); Total Protein 7.4 g/dL (6.3-8.2)
[2021-05-06 17:15] LABS: Appearance,Urine Cloudy (Clear); Bacteria,Urine Moderate /hpf; Bilirubin,Urine Negative (Negative); Blood,Urine Large (Negative); Color,Urine Dark Yellow; Glucose,Urine (UA) Negative (Negative); Ketones,Urine Negative (Negative); Leukocyte Esterase,Urine Large (Negative); Mucus,Urine Rare /hpf; Nitrite,Urine Negative (Negative); PH, Urine 6.5 (5.0-8.0); Protein,Urine 1+ (Negative); RBC,Urine >182 /hpf (0-5); Specific Gravity,Urine 1.015 (1.001-1.035); Urobilinogen,Urine <2.0 mg/dL (<2.0); WBC,Urine 100 /hpf (0-5)
--- NOTE | 2021-05-06 17:15 | XR ---
EXAM: Abdomen radiograph. HISTORY: Pain. TECHNIQUE: Upright AP view. COMPARISON: None available FINDINGS: There is diffuse moderate colonic distention with gas and stool. There are no pathologic calcificatio ns. No acute osseous abnormality seen. Left hip arthroplasty seen. IMPRESSION: Moderate colonic distention with gas and stool, compatible with colonic ileus/constipation.
--- NOTE | 2021-05-06 17:18 | ED ---
Abdominal Pain HPI - General Chief Complaint: Abdominal Pain Stated Complaint: Abd Pain Time Seen by Provider: 05/06/21 16:17 Source: patient Mode of arrival: ambulatory Limitations: no limitations - History of Present Illness Initial Comments: Patient is an 80-year-old male that presents to emergency room complaining of abdominal pain and distention and constipation for 4 days. He notes that he is nauseous but has not vomited. He notes that he tried to make himself vomit with no relief. He notes that his belly is distended more than usual. He notes that he just uncomfortable. He notes that he recently had a urologic procedure done with Dr. Bryant approximately last . Patient denied any other complaints or issues at this time. He was well-appearing well-hydrated 80-year-old male in some moderate discomfort but no pain. He denied any chest pain shortness of breath headache vomiting diarrhea fever fatigue chills hematochezia melena. - Related Data Home Medications Medication Instructions Recorded Confirmed Finasteride [Proscar] 5 mg PO HS 02/20/16 05/06/21 metFORMIN HCL [Glucophage] 500 mg PO HS 10/07/16 05/06/21 Losartan [Cozaar] 50 mg PO DAILY 03/23/18 05/06/21 Latanoprost Ophth [Xalatan 0.005%] 1 drop BOTH EYES HS 03/22/21 05/06/21 Metoprolol Tartrate [Lopressor] 25 mg PO BID 03/22/21 05/06/21 Rivaroxaban [Xarelto] 20 mg PO DAILY 03/22/21 05/06/21 Diclofenac Sodium [Voltaren] 75 mg PO DAILY 05/06/21 05/06/21 HYDROcodone/APAP 7.5-325MG [[place] 1 tab PO Q6HR PRN 05/06/21 05/06/21 7.5] Lovastatin [Mevacor] 20 mg PO HS 05/06/21 05/06/21 Allergies Allergy/AdvReac Type Severity Reaction Status Date / Time Penicillins Allergy Itching Verified 05/06/21 17:41 Review of Systems ROS Statement: Those systems with pertinent positive or pertinent negative responses have been documented in the HPI. ROS Other: All systems not noted in ROS Statement are negative. Past Medical History Past Medical History: Cancer, Diabetes Mellitus, Hyperlipidemia, Hypertension, Prostate Disorder Additional Past Medical History / Comment(s): Hx: Skin cancer, BPH. hx colon polyps, sinus problems History of Any Multi-Drug Resistant Organisms: None Reported Past Surgical History: Adenoidectomy, Hernia Repair, Prostate Surgery, Tonsillectomy Additional Past Surgical History / Comment(s): Prostate surgery x 3. Hemorrhoidectomy. Carpal tunnel-juan, trigger finger-left thumb. Juan cataracts, bladder tumor Past Anesthesia/Blood Transfusion Reactions: No Reported Reaction Past Psychological History: No Psychological Hx Reported Smoking Status: Never smoker Past Alcohol Use History: Rare Past Drug Use History: None Reported - Past Family History Father Family Medical History: Cancer General Exam Limitations: no limitations General appearance: alert, in no apparent distress, obese Head exam: Present: atraumatic, normocephalic, normal inspection Eye exam: Present: normal appearance, PERRL, EOMI. Absent: scleral icterus, conjunctival injection, periorbital swelling Neck exam: Present: normal inspection Respiratory exam: Present: normal lung sounds bilaterally. Absent: respiratory distress, wheezes, rales, rhonchi, stridor Cardiovascular Exam: Present: regular rate, normal rhythm, normal heart sounds. Absent: systolic murmur, diastolic murmur, rubs, gallop, clicks GI/Abdominal exam: Present: soft, distended, hypoactive bowel sounds, other (Generalized discomfort no point tenderness.). Absent: tenderness, guarding, rebound, rigid Extremities exam: Present: normal inspection, full ROM, normal capillary refill. Absent: tenderness, pedal edema, joint swelling, calf tenderness Neurological exam: Present: alert, oriented X3 Psychiatric exam: Present: normal affect, normal mood Skin exam: Present: warm, dry, intact, normal color. Absent: rash Course Vital Signs 05/06/21 05/06/21 16:10 17:12 Temperature 98 F Pulse Rate 95 Respiratory 16 18 Rate Blood Pressure 182/104 O2 Sat by Pulse 96 Oximetry Medical Decision Making - Medical Decision Making 80-year-old male complaining of constipation status post urological procedure with no bowel movements. Labs, 1 L normal saline, 4 mg morphine, 4 g of Zofran, 10 mg of Reglan, KUB ordered. Labs: Lactic acid 2.6, white blood cells 18.1, urinalysis shows large quantities of white blood cells and red blood cells. Patient declined Zofran and Reglan. Case discussed with Dr. Griffith, decided consult Dr. Bryant who noted that he wanted patient to be admitted to medicine with him on consult. Dr. King consulted and will accept the admit. 750 mg of Levaquin ordered. - Lab Data Result diagrams: 05/06/21 16:40 05/06/21 16:40 Lab Results 05/06/21 05/06/21 05/06/21 Range/Units 16:40 16:40 16:40 WBC 18.1 H (3.8-10.6) k/uL RBC 4.98 (4.30-5.90) m/uL Hgb 14.6 (13.0-17.5) gm/dL Hct 43.6 (39.0-53.0) % MCV 87.6 (80.0-100.0) fL MCH 29.2 (25.0-35.0) pg MCHC 33.4 (31.0-37.0) g/dL RDW 14.1 (11.5-15.5) % Plt Count 249 (150-450) k/uL MPV 7.9 Neutrophils % 76 % Lymphocytes % 16 % Monocytes % 6 % Eosinophils % 1 % Basophils % 0 % Neutrophils # 13.7 H (1.3-7.7) k/uL Lymphocytes # 2.9 (1.0-4.8) k/uL Monocytes # 1.1 H (0-1.0) k/uL Eosinophils # 0.2 (0-0.7) k/uL Basophils # 0.1 (0-0.2) k/uL Sodium 136 L (137-145) mmol/L Potassium 4.6 (3.5-5.1) mmol/L Chloride 105 (98-107) mmol/L Carbon Dioxide 21 L (22-30) mmol/L Anion Gap 10 mmol/L BUN 25 H (9-20) mg/dL Creatinine 1.07 (0.66-1.25) mg/dL Est GFR (CKD-EPI)AfAm 76 (>60 ml/min/1.73 sqM) Est GFR (CKD-EPI)NonAf 66 (>60 ml/min/1.73 sqM) Glucose 138 H (74-99) mg/dL Plasma Lactic Acid Jared (0.7-2.0) mmol/L Calcium 9.4 (8.4-10.2) mg/dL Total Bilirubin 0.6 (0.2-1.3) mg/dL AST 37 (17-59) U/L ALT 18 (4-49) U/L Alkaline Phosphatase 146 H (38-126) U/L Total Protein 7.4 (6.3-8.2) g/dL Albumin 4.5 (3.5-5.0) g/dL Amylase 45 (30-110) U/L Lipase 66 (23-300) U/L Urine Color Dark Yellow Urine Appearance Cloudy (Clear) Urine pH 6.5 (5.0-8.0) Ur Specific [place] 1.015 (1.001-1.035) Urine Protein 1+ H (Negative) Urine Glucose (UA) Negative (Negative) Urine Ketones Negative (Negative) Urine Blood Large H (Negative) Urine Nitrite Negative (Negative) Urine Bilirubin Negative (Negative) Urine Urobilinogen <2.0 (<2.0) mg/dL Ur Leukocyte Esterase Large H (Negative) Urine RBC >182 H (0-5) /hpf Urine WBC 100 H (0-5) /hpf Urine Bacteria Moderate H (None) /hpf Urine Mucus Rare H (None) /hpf 05/06/21 Range/Units 16:40 WBC (3.8-10.6) k/uL RBC (4.30-5.90) m/uL Hgb (13.0-17.5) gm/dL Hct (39.0-53.0) % MCV (80.0-100.0) fL MCH (25.0-35.0) pg MCHC (31.0-37.0) g/dL RDW (11.5-15.5) % Plt Count (150-450) k/uL MPV Neutrophils % % Lymphocytes % % Monocytes % % Eosinophils % % Basophils % % Neutrophils # (1.3-7.7) k/uL Lymphocytes # (1.0-4.8) k/uL Monocytes # (0-1.0) k/uL Eosinophils # (0-0.7) k/uL Basophils # (0-0.2) k/uL Sodium (137-145) mmol/L Potassium (3.5-5.1) mmol/L Chloride (98-107) mmol/L Carbon Dioxide (22-30) mmol/L Anion Gap mmol/L BUN (9-20) mg/dL Creatinine (0.66-1.25) mg/dL Est GFR (CKD-EPI)AfAm (>60 ml/min/1.73 sqM) Est GFR (CKD-EPI)NonAf (>60 ml/min/1.73 sqM) Glucose (74-99) mg/dL Plasma Lactic Acid Jared 2.6 H* (0.7-2.0) mmol/L Calcium (8.4-10.2) mg/dL Total Bilirubin (0.2-1.3) mg/dL AST (17-59) U/L ALT (4-49) U/L Alkaline Phosphatase (38-126) U/L Total Protein (6.3-8.2) g/dL Albumin (3.5-5.0) g/dL Amylase (30-110) U/L Lipase (23-300) U/L Urine Color Urine Appearance (Clear) Urine pH (5.0-8.0) Ur Specific [place] (1.001-1.035) Urine Protein (Negative) Urine Glucose (UA) (Negative) Urine Ketones (Negative) Urine Blood (Negative) Urine Nitrite (Negative) Urine Bilirubin (Negative) Urine Urobilinogen (<2.0) mg/dL Ur Leukocyte Esterase (Negative) Urine RBC (0-5) /hpf Urine WBC (0-5) /hpf Urine Bacteria (None) /hpf Urine Mucus (None) /hpf - Radiology Data Radiology results: report reviewed, image reviewed KUB: There is diffuse moderate colonic distention with gas and stool. There are no pathologic calcifications. No acute osseous abnormality seen. Left hip arthroplasty seen. Disposition Clinical Impression: Constipation, Abdominal distention, Abdominal pain Disposition: ADMITTED IP TO THIS HOSP Condition: Stable Is patient prescribed a controlled substance at d/c from ED?: No Referrals: Cherelle Gonzalez MD [Primary Care Provider] - 1-2 days Time of Disposition: 18:19
[2021-05-06] MEDS ORDERED: METOCLOPRAMIDE 5 MG/ML 2 ML VIAL IVP STA (17:19)
[2021-05-06] MEDS ORDERED: LEVOFLOXACIN 750MG-D5W PMX 750 MG in DEXTROSE/WATER 1 150ML.BAG IVPB STA (17:54)
[2021-05-06] MEDS ORDERED: ACETAMINOPHEN TAB 325 MG TAB PO PRN (18:20)
[2021-05-06] MEDS ORDERED: NALOXONE 0.4 MG/ML 1 ML VIAL IV PRN (18:20)
[2021-05-06] MEDS ORDERED: LACTULOSE 20 GM/30 ML CUP PO ONE (18:26)
[2021-05-06] MEDS ORDERED: HYDROcodone/APAP 7.5-325MG 1 EACH TAB PO PRN (18:27)
[2021-05-06] MEDS ORDERED: SODIUM CHLORIDE 0.9% 1,000 ML IV SCH (18:30)
--- NOTE | 2021-05-06 18:35 | P.HPIM ---
History of Present Illness H&P Date: 05/06/21 This is a 80-year-old male with past medical history noted below that presented to the emergency room with worsening abdominal distention and constipation. Patient said that last time he had a bowel movement was on Friday. Patient told me that he has been eating and drinking normally and the last couple of days he had some issues with nausea but no vomiting. He denies any significant abdominal pain. Abdominal x-ray showed significant stool burden with suspected colonic ileus. Patient patient had recently had a cystoscopy for bladder tumor removal with urology at [facility]. Urinalysis in the emergency room showed possible UTI even though he was a bloody sample secondary to recent procedure. Patient was seen and evaluated by me in the ER. He appears nontoxic. His abdomen is soft and nontender. Abdomen was noted to be distended and patient told me that is bigger than normal. Patient is passing gas. Review of Systems Review of system: 14 points review of systems were obtained and were negative except to what were mentioned in the HPI. Past Medical History Past Medical History: Cancer, Diabetes Mellitus, Hyperlipidemia, Hypertension, Prostate Disorder Additional Past Medical History / Comment(s): Hx: Skin cancer, BPH. hx colon polyps, sinus problems History of Any Multi-Drug Resistant Organisms: None Reported Past Surgical History: Adenoidectomy, Hernia Repair, Prostate Surgery, Tonsillectomy Additional Past Surgical History / Comment(s): Prostate surgery x 3. Hemorrhoidectomy. Carpal tunnel-juan, trigger finger-left thumb. Juan cataracts, bladder tumor Past Anesthesia/Blood Transfusion Reactions: No Reported Reaction Past Psychological History: No Psychological Hx Reported Smoking Status: Never smoker Past Alcohol Use History: Rare Past Drug Use History: None Reported - Past Family History Father Family Medical History: Cancer Medications and Allergies Home Medications Medication Instructions Recorded Confirmed Type Finasteride [Proscar] 5 mg PO HS 02/20/16 05/06/21 History metFORMIN HCL [Glucophage] 500 mg PO HS 10/07/16 05/06/21 History Losartan [Cozaar] 50 mg PO DAILY 03/23/18 05/06/21 History Latanoprost Ophth [Xalatan 0.005%] 1 drop BOTH EYES HS 03/22/21 05/06/21 History Metoprolol Tartrate [Lopressor] 25 mg PO BID 03/22/21 05/06/21 History Rivaroxaban [Xarelto] 20 mg PO DAILY 03/22/21 05/06/21 History Diclofenac Sodium [Voltaren] 75 mg PO DAILY 05/06/21 05/06/21 History HYDROcodone/APAP 7.5-325MG [[place] 1 tab PO Q6HR PRN 05/06/21 05/06/21 History 7.5] Lovastatin [Mevacor] 20 mg PO HS 05/06/21 05/06/21 History Allergies Allergy/AdvReac Type Severity Reaction Status Date / Time Penicillins Allergy Itching Verified 05/06/21 17:41 Physical Exam Vitals: Vital Signs Temp Pulse Resp BP Pulse Ox 05/06/21 17:12 18 05/06/21 16:10 98 F 95 16 182/104 96 Intake and Output 05/06/21 05/06/21 05/06/21 06:59 14:59 22:59 Other: Weight 108.862 kg General: The patient is awake and alert, in no distress Eye: there is normal conjunctiva bilaterally. Neck: The neck is supple, there is no JVD. Cardiovascular: Normal S1-S2, no S3-S4, no murmurs. Respiratory: Lungs clear to auscultation bilaterally Gastrointestinal: Abdomen is soft, nontender but distended Musculoskeletal: There is no pedal edema. Neurological:. Speech is normal. Skin: Skin is warm and dry Results CBC & Chem 7: 05/06/21 16:40 05/06/21 16:40 Labs: Abnormal Lab Results - Last 24 Hours (Table) 05/06/21 05/06/21 05/06/21 Range/Units 16:40 16:40 16:40 WBC 18.1 H (3.8-10.6) k/uL Neutrophils # 13.7 H (1.3-7.7) k/uL Monocytes # 1.1 H (0-1.0) k/uL Sodium 136 L (137-145) mmol/L Carbon Dioxide 21 L (22-30) mmol/L BUN 25 H (9-20) mg/dL Glucose 138 H (74-99) mg/dL Plasma Lactic Acid Jared (0.7-2.0) mmol/L Alkaline Phosphatase 146 H (38-126) U/L Urine Protein 1+ H (Negative) Urine Blood Large H (Negative) Ur Leukocyte Esterase Large H (Negative) Urine RBC >182 H (0-5) /hpf Urine WBC 100 H (0-5) /hpf Urine Bacteria Moderate H (None) /hpf Urine Mucus Rare H (None) /hpf 05/06/21 Range/Units 16:40 WBC (3.8-10.6) k/uL Neutrophils # (1.3-7.7) k/uL Monocytes # (0-1.0) k/uL Sodium (137-145) mmol/L Carbon Dioxide (22-30) mmol/L BUN (9-20) mg/dL Glucose (74-99) mg/dL Plasma Lactic Acid Jared 2.6 H* (0.7-2.0) mmol/L Alkaline Phosphatase (38-126) U/L Urine Protein (Negative) Urine Blood (Negative) Ur Leukocyte Esterase (Negative) Urine RBC (0-5) /hpf Urine WBC (0-5) /hpf Urine Bacteria (None) /hpf Urine Mucus (None) /hpf Assessment and Plan Assessment: This is a 80-year-old male with past medical history noted below who presented to the emergency room with worsening abdominal distention and constipation. Patient was evaluated in the ER and will be admitted to the hospital for further management of his medical problems noted below 1. Constipation with possible colonic ileus/fecal impaction: Enema will be administered. I would also order one-time dose of lactulose. Continue gentle IV fluid hydration. Clear liquids for now. We will continue to monitor clinical status. In no improvement in the next 24 hours we will obtain computed tomography scan of the abdomen and pelvis for further evaluation 2. Complicated UTI with recent cystoscopy/tumor removal on Friday. Started on IV Levaquin (patient has penicillin ALLERGY) awaiting urine culture. Urology consulted for further evaluation. 3. Sepsis without septic shock 4. Recent cystoscopy on Friday with tumor resection at outside hospital: Urology consulted 5. Chronic atrial fibrillation on anticoagulation with Rivaroxaban: Currently anticoagulation on hold for 5 days postoperatively 6. Essential hypertension, blood pressure well-controlled 7. Type 2 diabetes hold home dose of metformin and continue sliding scale insulin 8. Patient is full code
[2021-05-06] MEDS ORDERED: ONDANSETRON 4 MG/2 ML VIAL IVP PRN (18:37)
[2021-05-06 20:37] LABS: Glucose,Whole Blood 144 mg/dL (75-99)
[2021-05-06] MEDS: METOPROLOL TARTRATE 25 MG TAB PO SCH (20:46)
[2021-05-06] MEDS: INSULIN ASPART (NovoLOG) 100 UNIT/ML VIAL SQ SCH (20:47)
[2021-05-06] MEDS ORDERED: ATORVASTATIN 10 MG TAB PO SCH (21:00)
[2021-05-06] MEDS ORDERED: FINASTERIDE 5 MG TAB PO SCH (21:00)
[2021-05-06] MEDS ORDERED: LATANOPROST 0.005% OPHTH DROPS 2.5 ML BTL BOTH EYES SCH (21:00)
[2021-05-06 22:24] VITALS: RESP 16
[2021-05-07 06:54] LABS: Glucose,Whole Blood 108 mg/dL (75-99)
[2021-05-07] MEDS: INSULIN ASPART (NovoLOG) 100 UNIT/ML VIAL SQ SCH ×2 (08:01→12:11)
[2021-05-07] MEDS: METOPROLOL TARTRATE 25 MG TAB PO SCH (08:03)
[2021-05-07 08:04] VITALS: BP 113/69; PULSE 90; TEMP 98.2
[2021-05-07] MEDS ORDERED: LOSARTAN 50 MG TAB PO SCH (09:00)
--- NOTE | 2021-05-07 10:33 | P.GSCN ---
History of Present Illness Consult date: 05/07/21 Reason for Consult: Abdominal pain, UTI History of present illness: 80-year-old male that presented to the hospital with abdominal pain, distention and constipation. He underwent a TURBT on May 04, at [facility], Cain catheter was removed on May 06. Denies any gross hematuria or dysuria, but of note his UA showed positive leukocyte esterase. Since admission he had bowel movement, and indicated his abdominal pain has resolved, so did his abdominal distention. Denies any urinary symptoms at this time. Has been able to void without any issues Review of Systems - Constitutional Denies fever, Denies weight loss - EENT Ears, nose, mouth and throat: Denies dysphagia - Cardiovascular Denies chest pain, Denies shortness of breath - Respiratory Denies cough, Denies 7 - Gastrointestinal Reports abdominal pain, Reports constipation - Genitourinary Denies dysuria, Denies hematuria - Neurological Denies headaches, Denies syncope Past Medical History Past Medical History: Atrial Fibrillation, Cancer, Diabetes Mellitus, Hyperlipidemia, Hypertension, Prostate Disorder Additional Past Medical History / Comment(s): Hx: Skin cancer, BPH. hx colon polyps, sinus problems History of Any Multi-Drug Resistant Organisms: None Reported Past Surgical History: Adenoidectomy, Hernia Repair, Joint Replacement, Prostate Surgery, Tonsillectomy Additional Past Surgical History / Comment(s): Prostate surgery x 3. Hemorrhoidectomy. Carpal tunnel-juan, trigger finger-left thumb. Juan cataracts, bladder tumor, left hip replacement Past Anesthesia/Blood Transfusion Reactions: No Reported Reaction Past Psychological History: No Psychological Hx Reported Smoking Status: Never smoker Past Alcohol Use History: Rare Past Drug Use History: None Reported - Past Family History Father Family Medical History: Cancer Medications and Allergies Home Medications Medication Instructions Recorded Confirmed Type Finasteride [Proscar] 5 mg PO DAILY 02/20/16 05/06/21 History metFORMIN HCL [Glucophage] 500 mg PO HS 10/07/16 05/06/21 History Losartan [Cozaar] 50 mg PO DAILY 03/23/18 05/06/21 History Latanoprost Ophth [Xalatan 0.005%] 1 drop BOTH EYES HS 03/22/21 05/06/21 History Metoprolol Tartrate [Lopressor] 25 mg PO BID 03/22/21 05/06/21 History Rivaroxaban [Xarelto] 20 mg PO DAILY 03/22/21 05/06/21 History Lovastatin [Mevacor] 20 mg PO DAILY 05/06/21 05/06/21 History Verapamil HCl [Verapamil ER] 120 mg PO DAILY 05/06/21 05/06/21 History Allergies Allergy/AdvReac Type Severity Reaction Status Date / Time Penicillins Allergy Itching Verified 05/06/21 17:41 Surgical - Exam Vital Signs Temp Pulse Resp BP Pulse Ox 98 F 95 16 182/104 96 05/06/21 16:10 05/06/21 16:10 05/06/21 16:10 05/06/21 16:10 05/06/21 16:10 - General no distress - Eyes PERRL, normal ocular movement - ENT normal nares, normal mucosa - Respiratory normal expansion, normal respiratory effort - Abdomen Abdomen: soft, non tender, no distended - Psychiatric oriented to time, oriented to person, oriented to place Results - Labs 05/06/21 16:40 05/06/21 16:40 Abnormal Lab Results - Last 24 Hours (Table) 05/06/21 05/06/21 05/06/21 Range/Units 16:40 16:40 16:40 WBC 18.1 H (3.8-10.6) k/uL Neutrophils # 13.7 H (1.3-7.7) k/uL Monocytes # 1.1 H (0-1.0) k/uL Sodium 136 L (137-145) mmol/L Carbon Dioxide 21 L (22-30) mmol/L BUN 25 H (9-20) mg/dL Glucose 138 H (74-99) mg/dL POC Glucose (mg/dL) (75-99) mg/dL Plasma Lactic Acid Jared (0.7-2.0) mmol/L Alkaline Phosphatase 146 H (38-126) U/L Urine Protein 1+ H (Negative) Urine Blood Large H (Negative) Ur Leukocyte Esterase Large H (Negative) Urine RBC >182 H (0-5) /hpf Urine WBC 100 H (0-5) /hpf Urine Bacteria Moderate H (None) /hpf Urine Mucus Rare H (None) /hpf 05/06/21 05/06/21 05/07/21 Range/Units 16:40 20:34 06:52 WBC (3.8-10.6) k/uL Neutrophils # (1.3-7.7) k/uL Monocytes # (0-1.0) k/uL Sodium (137-145) mmol/L Carbon Dioxide (22-30) mmol/L BUN (9-20) mg/dL Glucose (74-99) mg/dL POC Glucose (mg/dL) 144 H 108 H (75-99) mg/dL Plasma Lactic Acid Jared 2.6 H* (0.7-2.0) mmol/L Alkaline Phosphatase (38-126) U/L Urine Protein (Negative) Urine Blood (Negative) Ur Leukocyte Esterase (Negative) Urine RBC (0-5) /hpf Urine WBC (0-5) /hpf Urine Bacteria (None) /hpf Urine Mucus (None) /hpf Microbiology - Last 24 Hours (Table) 05/06/21 16:40 Urine Culture - Preliminary Urine,Voided Diabetes panel 05/06/21 Range/Units 16:40 Sodium 136 L (137-145) mmol/L Potassium 4.6 (3.5-5.1) mmol/L Chloride 105 (98-107) mmol/L Carbon Dioxide 21 L (22-30) mmol/L BUN 25 H (9-20) mg/dL Creatinine 1.07 (0.66-1.25) mg/dL Glucose 138 H (74-99) mg/dL Calcium 9.4 (8.4-10.2) mg/dL AST 37 (17-59) U/L ALT 18 (4-49) U/L Alkaline Phosphatase 146 H (38-126) U/L Total Protein 7.4 (6.3-8.2) g/dL Albumin 4.5 (3.5-5.0) g/dL Calcium panel 05/06/21 Range/Units 16:40 Calcium 9.4 (8.4-10.2) mg/dL Albumin 4.5 (3.5-5.0) g/dL Pituitary panel 05/06/21 Range/Units 16:40 Sodium 136 L (137-145) mmol/L Potassium 4.6 (3.5-5.1) mmol/L Chloride 105 (98-107) mmol/L Carbon Dioxide 21 L (22-30) mmol/L BUN 25 H (9-20) mg/dL Creatinine 1.07 (0.66-1.25) mg/dL Glucose 138 H (74-99) mg/dL Calcium 9.4 (8.4-10.2) mg/dL Adrenal panel 05/06/21 Range/Units 16:40 Sodium 136 L (137-145) mmol/L Potassium 4.6 (3.5-5.1) mmol/L Chloride 105 (98-107) mmol/L Carbon Dioxide 21 L (22-30) mmol/L BUN 25 H (9-20) mg/dL Creatinine 1.07 (0.66-1.25) mg/dL Glucose 138 H (74-99) mg/dL Calcium 9.4 (8.4-10.2) mg/dL Total Bilirubin 0.6 (0.2-1.3) mg/dL AST 37 (17-59) U/L ALT 18 (4-49) U/L Alkaline Phosphatase 146 H (38-126) U/L Total Protein 7.4 (6.3-8.2) g/dL Albumin 4.5 (3.5-5.0) g/dL Assessment and Plan Assessment: 80-year-old male presented to the hospital with abdominal pain, constipation, resolved this morning. He had a recent TURBT done on May 04, removed his catheter into the . Denies any gross hematuria or any urinary issues at this time. His UA is concerning for UTI, he is asymptomatic, but given his recent hip replacement and his positive UA recommend continuing antibiotics Plan: -Okay for discharge from urology standpoint, we'll discharge Bactrim -Advised to keep his follow-up for pathology review
[2021-05-07 11:38] LABS: Basophils # (A) 0.05 X 10*3/uL (0.00-0.10); Basophils % (A) 0.4 %; Eosinophils # (A) 0.08 X 10*3/uL (0.04-0.35); Eosinophils % (A) 0.7 %; HCT 41.9 % (39.6-50.0); HGB 13.1 g/dL (13.0-17.0); Lymphocytes # (A) 2.58 X 10*3/uL (0.90-5.00); Lymphocytes % (A) 22.7 %; MCH 28.7 pg (27.0-32.0); MCHC 31.3 g/dL (32.0-37.0); MCV 91.7 fL (80.0-97.0); Mean Platelet Volume 10.8 fL (9.5-12.2); Monocytes # (A) 1.37 X 10*3/uL (0.20-1.00); Neutrophils # (A) 7.27 X 10*3/uL (1.80-7.70); Neutrophils % (A) 63.9 %; Platelet Count 198 X 10*3/uL (140-440); RBC 4.57 X 10*6/uL (4.40-5.60); RDW 14.2 % (11.5-14.5); WBC 11.38 X 10*3/uL (4.50-10.00)
--- NOTE | 2021-05-07 12:05 | P.DS ---
Providers Date of admission: 05/06/21 18:55 Expected date of discharge: 05/07/21 Attending physician: Radha King Consults: 05/06/21 18:20 Consult Physician Stat Consulting Provider: Cristo Bryant Consult Reason/Comments: ileus s/p procedure Do you want consulting provider notified?: Already Contacted Primary care physician: Cherelle Gonzalez MD Hospital Course: This is a 80-year-old male with past medical history noted below who presented to the emergency room with worsening abdominal distention and constipation. Patient was evaluated in the ER and will be admitted to the hospital for further management of his medical problems noted below 1. Constipation with possible colonic ileus/fecal impaction: Resolved with rectal enema. Patient had 2 large bowel movement. He felt a lot better. He was able to tolerate diet with no difficulty. 2. Complicated UTI with recent cystoscopy/tumor removal on Friday. Started on IV Levaquin (patient has penicillin ALLERGY) awaiting urine culture. Urology consulted for further evaluation. Recommended to finish antibiotic course with Bactrim. Follow-up in the office as directed. 3. Sepsis without septic shock 4. Recent TURP 5. Chronic atrial fibrillation on anticoagulation with Rivaroxaban: Currently anticoagulation on hold for 5 days postoperatively 6. Essential hypertension, blood pressure well-controlled 7. Type 2 diabetes resume home regimen Patient will be discharged home in a stable condition. He was given a prescription for MiraLAX to be taken daily. Follow up with urology as directed. Patient Condition at Discharge: Stable Plan - Discharge Summary Discharge Rx Participant: No New Discharge Prescriptions: New Sulfamethox-Tmp 800-160Mg [Bactrim DS 800-160 mg] 1 tab PO Q12HR 6 Days #12 tab polyethylene glycoL 3350 [Miralax] 17 gm PO DAILY #30 packet Continue Finasteride [Proscar] 5 mg PO DAILY metFORMIN HCL [Glucophage] 500 mg PO HS Losartan [Cozaar] 50 mg PO DAILY Lovastatin [Mevacor] 20 mg PO DAILY Verapamil HCl [Verapamil ER] 120 mg PO DAILY Rivaroxaban [Xarelto] 20 mg PO DAILY Metoprolol Tartrate [Lopressor] 25 mg PO BID Latanoprost Ophth [Xalatan 0.005%] 1 drop BOTH EYES HS Discharge Medication List Finasteride [Proscar] 5 mg PO DAILY 02/20/16 [History] metFORMIN HCL [Glucophage] 500 mg PO HS 10/07/16 [History] Losartan [Cozaar] 50 mg PO DAILY 03/23/18 [History] Latanoprost Ophth [Xalatan 0.005%] 1 drop BOTH EYES HS 03/22/21 [History] Metoprolol Tartrate [Lopressor] 25 mg PO BID 03/22/21 [History] Rivaroxaban [Xarelto] 20 mg PO DAILY 03/22/21 [History] Lovastatin [Mevacor] 20 mg PO DAILY 05/06/21 [History] Verapamil HCl [Verapamil ER] 120 mg PO DAILY 05/06/21 [History] Sulfamethox-Tmp 800-160Mg [Bactrim DS 800-160 mg] 1 tab PO Q12HR 6 Days #12 tab 05/07/21 [Rx] polyethylene glycoL 3350 [Miralax] 17 gm PO DAILY #30 packet 05/07/21 [Rx] Follow up Appointment(s)/Referral(s): Cherelle Gonzalez MD [Primary Care Provider] - 1-2 days Cristo Bryant MD [STAFF PHYSICIAN] - 1 Week Patient Instructions/Handouts: Constipation (DC) Discharge Disposition: HOME SELF-CARE
[2021-05-07 12:10] LABS: Glucose,Whole Blood 104 mg/dL (75-99)
[2021-05-07 12:32] LABS: African American GFR (CKD) 93.2 (60.0-200.0); Anion Gap 8.6 mmol/L (4.00-12.00); BUN/Creat Ratio 22.22 Ratio (12.00-20.00); Calcium 8.6 mg/dL (8.7-10.3); Carbon Dioxide 23.4 mmol/L (21.6-31.8); Non-African American GFR(CKD) 80.4 (60.0-200.0); Potassium 4.4 mmol/L (3.5-5.5)
[2021-05-07] MEDS ORDERED: LEVOFLOXACIN 500MG-D5W PMX 500 MG in DEXTROSE/WATER 1 100ML.BAG IVPB SCH (18:00)
--- NOTE | 2021-05-21 15:25 | CDI ---
Documentation Clarification Form Date: 05/21/21 From: Johnathan Jameson Admit Date: 05/06/2021 06:55:00 PM Patient Name: Keyshawn Hooks Visit Number: [id number] Discharge Date: 05/07/2021 12:36:00 PM ATTENTION: The Clinical Documentation Specialists (CDI) and [facility] Coding Staff appreciate your assistance in clarifying documentation. Please respond to the clarification below the line at the bottom and electronically sign. The CDI & [facility] Coding staff will review the response and follow-up if needed. Please note: Queries are made part of the Legal Health Record. If you have any questions, please contact the author of this message via ITS. Dr. Radha King Complicated UTI is documented in the discharge summary and patient had a recent cystoscopy with bladder tumor removal. Additional clarification is requested regarding the relationship, if any, that exists between the diagnosis and the procedure. The procedure was done prior to admission. Patients Admitting Diagnosis: Complicated UTI Post-Operative Diagnosis: Complicated UTI Procedure performed: Cystoscopy done prior History/Risk Factors: sepsis due to UTI Clinical Indicators: sepsis Treatment: IV Zosyn Consults: What relationship, if any, exists between the diagnosis of complicated UTI and the procedure: [ ] UTI is a complication of surgical procedure [X ] UTI is an expected outcome of the surgical procedure [ ] Post-operative complication has been ruled out [ ] Other please specify ____ [ ] Unable to determine MTDD
== END 2021-05-07 12:36 | disposition home or self-care (01) | DRG 872 ==
LOC: EC 16:05 → 4SSUR 18:55
PROVIDERS: ADMIT Internal Medicine; ATTEND Internal Medicine
DX: A41.9 Sepsis, unspecified organism (principal); K56.7 Ileus, unspecified; I48.20 Chronic atrial fibrillation, unspecified; N39.0 Urinary tract infection, site not specified; Z79.01 Long term (current) use of anticoagulants; Z88.0 Allergy status to penicillin; E11.9 Type 2 diabetes mellitus without complications; E78.5 Hyperlipidemia, unspecified; I10 Essential (primary) hypertension; Z20.822 Contact with and (suspected) exposure to COVID-19; Z85.828 Personal history of other malignant neoplasm of skin; Z96.642 Presence of left artificial hip joint; Z86.010 Personal history of colon polyps; N40.0 Benign prostatic hyperplasia without lower urinary tract symptoms; Z79.84 Long term (current) use of oral hypoglycemic drugs; K59.00 Constipation, unspecified; Z79.899 Other long term (current) drug therapy
CPT/HCPCS: 36415; 74018; 80048; 80053; 81001; 82150; 83605; 83690; 85025; 87086; 87635; 96360; 96361; 99285

== ENCOUNTER → 2022-01-28 | Outpatient (CLI) | payer MEDICARE ==
[2022-01-28 15:30] LABS: Basophils # (A) 0.1 k/uL (0-0.2); Basophils % (A) 1 %; Eosinophils # (A) 0.2 k/uL (0-0.7); Eosinophils % (A) 2 %; Lymphocytes % (A) 19 %; MCH 30.1 pg (25.0-35.0); MCHC 32.5 g/dL (31.0-37.0); MCV 92.4 fL (80.0-100.0); Mean Platelet Volume 8.6; Monocytes # (A) 0.6 k/uL (0-1.0); Monocytes % (A) 6 %; Neutrophils # (A) 7.4 k/uL (1.3-7.7); Neutrophils % (A) 71 %; Platelet Count 149 k/uL (150-450); RBC 4.98 m/uL (4.30-5.90); RDW 13.8 % (11.5-15.5); WBC 10.4 k/uL (3.8-10.6)
== END | disposition home or self-care (01) ==
LOC: LABWHC1 14:05
PROVIDERS: ATTEND Internal Medicine
DX: D72.829 Elevated white blood cell count, unspecified (principal)
CPT/HCPCS: 36415; 85025

== ENCOUNTER 2022-12-16 09:18 | Emergency (ER) | payer MEDICARE ==
[2022-12-16 09:24] VITALS: RESP 18; TEMP 98.4
[2022-12-16] MEDS ORDERED: BACITRACIN OINT 1 EACH PACKET TOPICAL ONE (09:57)
--- NOTE | 2022-12-16 10:52 | CT ---
EXAMINATION TYPE: CT brain alysa dodge DATE OF EXAM: 12/16/2022 COMPARISON: NONE HISTORY: Fall injury with headache and neck pain CT DLP: 1707.5 mGycm. Automated Exposure Control for Dose Reduction was Utilized. TECHNIQUE: CT scan of the head and cervical spine are performed without contrast. FINDINGS: There is no acute intracranial hemorrhage or midline shift identified. Mild to moderate v entricular and sulcal prominence with increased CSF over the bilateral frontal and parietal lobes con sistent with chronic subdural hygromas or hematomas. Morales-white matter differentiation is preserved. The calvarium is intact. The globes are intact and the visualized sinuses are clear. Cervical spine is visualized in its entirety from C1 through upper thoracic levels and demonstrates s coliotic curvature without evidence of acute fracture or dislocation. Prevertebral soft tissue appea rs within normal limits. The C1-C2 articulation is within normal limits on the coronal images. Verte bral body heights are maintained. Mild to moderate disc space narrowing C5-C6 level. Edvpoail-kp-kvow re disc space narrowing C6-C7 level. Posterior spur disc complexes efface the anterior thecal sac at these levels on sagittal and axial images. Thyroid gland appears within normal limits. Lung apices sh ow no pneumothorax. IMPRESSION: 1. There is no acute fracture or dislocation evident in the cervical spine. 2. No acute intracranial hemorrhage or midline shift is seen.
--- NOTE | 2022-12-16 10:52 | ED ---
Fall HPI - General Chief Complaint: Fall Stated Complaint: Fall, Back Injury Time Seen by Provider: 12/16/22 09:20 Source: patient, EMS, RN notes reviewed Mode of arrival: EMS Limitations: no limitations - History of Present Illness Initial Comments: 82-year-old male presents emergency department via EMS with chief complaint of slip and fall. Patient states that on some ice falling backwards. He states he did strike his head but had no loss conscious denies any head or neck pain. Patient states he has upper to mid back pain denies any difficulty breathing he states that his crocs on his feet slipped off has an abrasion to his right foot, toe region. He is up-to-date on his tetanus. Patient denies any abdominal pain no pelvic pain - Related Data Home Medications Medication Instructions Recorded Confirmed Finasteride [Proscar] 5 mg PO DAILY 02/20/16 05/06/21 metFORMIN HCL [Glucophage] 500 mg PO HS 10/07/16 05/06/21 Losartan [Cozaar] 50 mg PO DAILY 03/23/18 05/06/21 Latanoprost Ophth [Xalatan 0.005%] 1 drop BOTH EYES HS 03/22/21 05/06/21 Metoprolol Tartrate [Lopressor] 25 mg PO BID 03/22/21 05/06/21 Rivaroxaban [Xarelto] 20 mg PO DAILY 03/22/21 05/06/21 Lovastatin [Mevacor] 20 mg PO DAILY 05/06/21 05/06/21 Verapamil HCl [Verapamil ER] 120 mg PO DAILY 05/06/21 05/06/21 Previous Rx's Medication Instructions Recorded Sulfamethox-Tmp 800-160Mg [Bactrim 1 tab PO Q12HR 6 Days #12 tab 05/07/21 DS 800-160 mg] polyethylene glycoL 3350 [Miralax] 17 gm PO DAILY #30 packet 05/07/21 Allergies Allergy/AdvReac Type Severity Reaction Status Date / Time Penicillins Allergy Itching Verified 05/06/21 17:41 Review of Systems ROS Statement: Those systems with pertinent positive or pertinent negative responses have been documented in the HPI. ROS Other: All systems not noted in ROS Statement are negative. Past Medical History Past Medical History: Atrial Fibrillation, Cancer, Diabetes Mellitus, Hyperlipidemia, Hypertension, Prostate Disorder Additional Past Medical History / Comment(s): Hx: Skin cancer, BPH. hx colon polyps, sinus problems History of Any Multi-Drug Resistant Organisms: None Reported Past Surgical History: Adenoidectomy, Hernia Repair, Joint Replacement, Prostate Surgery, Tonsillectomy Additional Past Surgical History / Comment(s): Prostate surgery x 3. Hemorrhoidectomy. Carpal tunnel-juan, trigger finger-left thumb. Juan cataracts, bladder tumor, left hip replacement Past Anesthesia/Blood Transfusion Reactions: No Reported Reaction Past Psychological History: No Psychological Hx Reported Smoking Status: Never smoker Past Alcohol Use History: Rare Past Drug Use History: None Reported - Past Family History Father Family Medical History: Cancer General Exam Limitations: no limitations General appearance: alert, in no apparent distress Head exam: Present: atraumatic, normocephalic, normal inspection Eye exam: Present: normal appearance, PERRL, EOMI. Absent: scleral icterus, c onjunctival injection, periorbital swelling ENT exam: Present: normal exam, normal oropharynx, mucous membranes moist Neck exam: Present: normal inspection, full ROM. Absent: tenderness, meningismus, lymphadenopathy Respiratory exam: Present: normal lung sounds bilaterally. Absent: respiratory distress, wheezes, rales, rhonchi, stridor Cardiovascular Exam: Present: regular rate, normal rhythm, normal heart sounds. Absent: systolic murmur, diastolic murmur, rubs, gallop, clicks GI/Abdominal exam: Present: soft, normal bowel sounds. Absent: distended, tenderness, guarding, rebound, rigid Extremities exam: Present: full ROM, normal capillary refill. Absent: normal inspection (Abrasion to the right foot toes noted), tenderness, pedal edema, joint swelling, calf tenderness Back exam: Present: full ROM, tenderness (Thoracic), paraspinal tenderness, vertebral tenderness Neurological exam: Present: alert, oriented X3, CN II-XII intact, reflexes normal. Absent: motor sensory deficit Skin exam: Present: warm, dry, intact, normal color. Absent: rash Course Vital Signs 12/16/22 09:20 Temperature 98.4 F Pulse Rate 63 Respiratory 18 Rate Blood Pressure 172/74 O2 Sat by Pulse 96 Oximetry Medical Decision Making - Medical Decision Making Was pt. sent in by a medical professional or institution (, PA, [employer]MI[employer], urgent care, hospital, or custodial...) When possible be specific @ -no Did you speak to anyone other than the patient for history (EMS, parent, family, police, friend...)? What history was obtained from this source @ -EMS Did you review nursing and triage notes (agree or disagree)? Why? @ -I reviewed and agree with nursing and triage notes Were old charts reviewed (outside hosp., previous admission, EMS record, old EKG, old radiological studies, urgent care reports/EKG's, custodial records)? Report findings @ -No old charts were reviewed Differential Diagnosis (chest pain, altered mental status, abdominal pain women, abdominal pain men, vaginal bleeding, weakness, fever, dyspnea, syncope, headache, dizziness, GI bleed, back pain, seizure, CVA, palpatations, mental health)? @ -Thoracic fracture, cervical fracture, intracranial hemorrhage, this this is not conclusive. EKG interpreted by me (3pts min.). @ -None X-rays interpreted by me (1pt min.). @ -X-ray of the thoracic spine shows no evidence of acute fracture CT interpreted by me (1pt min.). @ -CT of brain, C-spine did not reveal any acute process, no integral hemorrhage or mass effect no cervical fracture U/S interpreted by me (1pt. min.). @ -None done What testing was considered but not performed or refused? (CT, X-rays, U/S, labs)? Why? @ -None What meds were considered but not given or refused? Why? @ -None Did you discuss the management of the patient with other professionals (professionals i.e. , PA, [employer], lab, RT, psych nurse, clinical social worker, waxer tender, teacher, president and chief operating officer, heel caser)? Give summary @ -No Was smoking cessation discussed for >3mins.? @ -No Was critical care preformed (if so, how long)? @ -No Were there social determinants of health that impacted care today? How? (Homelessness, low income, unemployed, alcoholism, drug addiction, transportation, low edu. Level, literacy, decrease access to med. care, custodial, rehab)? @ -No Was there de-escalation of care discussed even if they declined (Discuss DNR or withdrawal of care, Hospice)? DNR status @ -No What co-morbidities impacted this encounter? (DM, HTN, Smoking, COPD, CAD, Cancer, CVA, ARF, Chemo, Hep., AIDS, mental health diagnosis, sleep apnea, morbid obesity)? @ -None Was patient admitted / discharged? Hospital course, mention meds given and route, prescriptions, significant lab abnormalities, going to OR and other pertinent info. @ -Discharged patient's x-ray, CT revealed no acute findings. Patient has thoracic contusion. Patient discharged with pain control return parameters were discussed. Undiagnosed new problem with uncertain prognosis? @ -No Drug Therapy requiring intensive monitoring for toxicity (Heparin, Nitro, Insulin, Cardizem)? @ -No Were any procedures done? @ -No Diagnosis/symptom? @ -Thoracic contusion Acute, or Chronic, or Acute on Chronic? @ -Acute Uncomplicated (without systemic symptoms) or Complicated (systemic symptoms)? @ -Uncomplicated Side effects of treatment? @ -No Exacerbation, Progression, or Severe Exacerbation? @ -No Poses a threat to life or bodily function? How? (Chest pain, [place], [place], pneumonia, PE, COPD, DKA, ARF, appy, cholecystitis, CVA, Diverticulitis, Homicidal, Suicidal, threat to staff... and all critical care pts) @ -No Disposition Clinical Impression: Fall, Contusion of thoracic spine Disposition: HOME SELF-CARE Condition: Stable Instructions (If sedation given, give patient instructions): Back Pain (ED) Additional Instructions: Please return to the Emergency Department if symptoms worsen or any other concerns. Is patient prescribed a controlled substance at d/c from ED?: No Referrals: Kike Gomez MD [Primary Care Provider] - 1-2 days Time of Disposition: 11:23
--- NOTE | 2022-12-16 10:53 | XR ---
EXAMINATION TYPE: XR thoracic spine 2V DATE OF EXAM: 12/16/2022 CLINICAL HISTORY: Fall injury with pain TECHNIQUE: Frontal, lateral, and swimmer's view of thoracic spine are obtained. COMPARISON: None. FINDINGS: Thoracic spine show satisfactory alignment without evidence of acute fracture or dislocatio n. Vertebral body heights and disc space heights are preserved. Large bridging osteophytes in the th oracic spine are present. Visualized ribs are intact bilaterally. IMPRESSION: No acute fracture or dislocation is seen in the thoracic spine.
[2022-12-16] MEDS ORDERED: ACET/COD 300 MG/30 MG STARTER PACK 6 TAB BTL PO STA (11:23)
[2022-12-16 11:39] VITALS: BP 163/74; PULSE 67
== END 2022-12-16 11:39 | disposition home or self-care (01) ==
LOC: EC 09:18
DX: S20.224A Contusion of middle back wall of thorax, initial encounter (principal); I10 Essential (primary) hypertension; I48.91 Unspecified atrial fibrillation; E78.5 Hyperlipidemia, unspecified; E11.36 Type 2 diabetes mellitus with diabetic cataract; Z79.84 Long term (current) use of oral hypoglycemic drugs; Z79.899 Other long term (current) drug therapy; Z88.0 Allergy status to penicillin; W00.0XXA Fall on same level due to ice and snow, initial encounter
CPT/HCPCS: 70450; 72070; 72125; 99284